=== PATIENT | female | born 2000 | race Caucasian/White ===

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

== ENCOUNTER 2020-01-17 18:53 | Emergency (ER) | payer OTHER ==
[~2020-01-17] VITALS: Ht 152.4 cm; Wt 86.2 kg
[~2020-01-17 18:53] MED LIST changes: +MACROBID100 M1 PO; +TOPAMAX50 MG PO
[2020-01-17 19:25] LABS: BASO # 0.1 10*3/uL (0.0-0.1); BASO % 0.9 % (0.0-1.0); EOS # 0.1 10*3/uL (0.0-0.4); HEMATOCRIT 37.4 % (37.0-47.0); LYMPH % 30.7 % (27.0-41.0); MEAN CELL VOLUME 80.1 fl (81.0-99.0); MEAN CORPUSCULAR HGB 24.4 pg (27.0-31.0); MEAN CORPUSCULAR HGB CONC 30.5 g/dl (33.0-37.0); MEAN PLATELET VOLUME 8.8 fl (9.6-12.3); MONO # 0.5 10*3/uL (0.1-1.0); MONO % 7.6 % (3.0-9.0); NEUT # 3.9 10*3/uL (2.3-7.9); NEUT % 58.6 % (47.0-73.0); PLATELET COUNT AUTOMATED 436 10*3/uL (130-400); RED BLOOD COUNT 4.67 10*6/uL (4.10-5.10); RED CELL DISTRI WIDTH 15.7 % (0-14.5); WHITE BLOOD COUNT 6.6 10*3/uL (4.8-10.8)
[2020-01-17 19:45] LABS: ALBUMIN 3.7 gm/dl (3.1-4.5); ALKALINE PHOSPHATASE 81 U/L (45-117); BUN 7 mg/dl (7-24); CHLORIDE 108 mmol/L (98-107); CREATININE 0.74 mg/dL (0.55-1.02); LIPASE 107 U/L (73-393); POTASSIUM 3.7 mmol/L (3.5-5.1); SGOT/AST 21 IU/L (3-35); SGPT/ALT 32 U/L (12-78); SODIUM 141 mmol/L (136-145); TOTAL PROTEIN 8.1 gm/dL (6.4-8.2)
[2020-01-17 19:51] LABS: BILIRUBIN Negative (Negative); BLOOD Negative (Negative); CLARITY Clear (Clear); COLOR Yellow (Yellow); GLUCOSE Negative (Negative); KETONE Negative (Negative); LEUKO ESTERASE 1+ (Negative); NITRITE Negative (Negative); PH 6.5 (4.5-8.0); SPECIFIC GRAVITY 1.015 (1.001-1.030)
[2020-01-17 20:14] LABS: BACTERIA TRACE
[2020-01-17] MEDS ORDERED: MACROBID100 M1 PO (21:49)
== END 2020-01-17 22:01 | disposition home or self-care (01) ==
LOC: ED 18:53
PROVIDERS: Nurse Practitioner Family
DX: N39.0 Urinary tract infection, site not specified (principal); Z79.899 Other long term (current) drug therapy

== ENCOUNTER 2020-07-19 18:28 | Emergency (ER) | payer OTHER ==
[~2020-07-19] VITALS: Wt 86.2 kg
== END 2020-07-19 23:40 | disposition left against medical advice (07) ==
LOC: ED 18:28
DX: N93.8 Other specified abnormal uterine and vaginal bleeding (principal); Z53.21 Procedure and treatment not carried out due to patient leaving prior to being seen by health care provider

== ENCOUNTER 2020-08-20 21:14 | Emergency (ER) | payer OTHER ==
[~2020-08-20] VITALS: Ht 152.4 cm; Wt 86.2 kg
[2020-08-20 23:06] LABS: BASO # 0.1 10*3/uL (0.0-0.1); BASO % 0.8 % (0.0-1.0); EOS # 0.1 10*3/uL (0.0-0.4); EOS % 1.3 % (1.0-4.0); HEMATOCRIT 37.2 % (37.0-47.0); LYMPH # 2.3 10*3/uL (1.3-4.4); LYMPH % 27.8 % (27.0-41.0); MEAN CELL VOLUME 84.2 fl (81.0-99.0); MEAN CORPUSCULAR HGB 26.5 pg (27.0-31.0); MEAN CORPUSCULAR HGB CONC 31.5 g/dl (33.0-37.0); MEAN PLATELET VOLUME 9.4 fl (9.6-12.3); MONO # 0.6 10*3/uL (0.1-1.0); MONO % 6.9 % (3.0-9.0); NEUT # 5.3 10*3/uL (2.3-7.9); PLATELET COUNT AUTOMATED 422 10*3/uL (130-400); RED BLOOD COUNT 4.42 10*6/uL (4.10-5.10); RED CELL DISTRI WIDTH 14.1 % (0-14.5); WHITE BLOOD COUNT 8.4 10*3/uL (4.8-10.8)
[2020-08-20 23:24] LABS: ALBUMIN 3.7 gm/dl (3.1-4.5); ALKALINE PHOSPHATASE 94 U/L (45-117); BUN 12 mg/dl (7-24); CHLORIDE 105 mmol/L (98-107); CREATININE 0.73 mg/dL (0.55-1.02); POTASSIUM 3.8 mmol/L (3.5-5.1); SGOT/AST 13 IU/L (3-35); SGPT/ALT 26 U/L (12-78); SODIUM 136 mmol/L (136-145)
[2020-08-20 23:26] LABS: B-hCG (QUALITATIVE) NEGATIVE (NEGATIVE)
[2020-08-20 23:29] LABS: BILIRUBIN Negative (Negative); BLOOD Negative (Negative); CLARITY Cloudy (Clear); COLOR Yellow (Yellow); GLUCOSE Negative (Negative); KETONE Negative (Negative); LEUKO ESTERASE Trace (Negative); NITRITE Negative (Negative); UROBILINOGEN 0.2 E.U./dl (0.0-1.0)
[2020-08-20 23:33] LABS: TROPONIN I < 0.015 ng/ml (<0.045)
[2020-08-20 23:52] LABS: BACTERIA 1+
== END 2020-08-21 00:53 | disposition left against medical advice (07) ==
LOC: ED 21:14
PROVIDERS: Emergency Medicine
DX: R07.89 Other chest pain (principal); M54.6 Pain in thoracic spine; R06.89 Other abnormalities of breathing

== ENCOUNTER 2022-06-12 18:19 | Emergency (ER) | payer OTHER | END 2022-06-12 20:07 | disposition home or self-care (01) | LOC: ED 18:19 | DX: S93.401A Sprain of unspecified ligament of right ankle, initial encounter (principal); W18.39XA Other fall on same level, initial encounter; Y93.89 Activity, other specified; Y92.89 Other specified places as the place of occurrence of the external cause; Y99.8 Other external cause status ==

== ENCOUNTER 2023-10-15 17:29 | Emergency (ER) | payer OTHER ==
[~2023-10-15] VITALS: Ht 152.4 cm; Wt 57.2 kg
[2023-10-15] MEDS ORDERED: Acetaminophen/Hydrocodone 5 MG/325 MG TABLET PO ONE (18:55)
[2023-10-15] MEDS ORDERED: NAPROSYN500 MG PO (20:10)
== END 2023-10-15 19:20 | disposition home or self-care (01) ==
LOC: ED 17:29
DX: S93.402A Sprain of unspecified ligament of left ankle, initial encounter (principal); X50.1XXA Overexertion from prolonged static or awkward postures, initial encounter; Y93.89 Activity, other specified; Y92.009 Unspecified place in unspecified non-institutional (private) residence as the place of occurrence of the external cause; Y99.8 Other external cause status

== ENCOUNTER 2024-08-16 21:21 | Emergency (ER) | payer OTHER ==
[~2024-08-16] VITALS: Ht 152.4 cm; Wt 81.6 kg
[2024-08-16] MEDS ORDERED: ACETAMINOPHEN 325 MG TAB PO ONE (21:45)
[2024-08-16] MEDS ORDERED: Amoxicillin/Clavulanate Pota 875 MG TAB PO ONE (21:45)
[2024-08-16] MEDS ORDERED: AMOX-CLAV 875-1 EACH PO (23:08)
== END 2024-08-16 23:20 | disposition home or self-care (01) ==
LOC: ED 21:21
DX: S60.221A Contusion of right hand, initial encounter (principal); S60.222A Contusion of left hand, initial encounter; S70.11XA Contusion of right thigh, initial encounter; R20.2 Paresthesia of skin; R20.0 Anesthesia of skin; W54.0XXA Bitten by dog, initial encounter; Y93.89 Activity, other specified; Y92.89 Other specified places as the place of occurrence of the external cause; Y99.8 Other external cause status